=== PATIENT | male | born 2000 | race Caucasian/White ===

== ENCOUNTER 2024-08-14 21:52 | Emergency (ER) | payer OTHER, SELFPAY ==
[2024-08-14 21:58] VITALS: BP 135/74; PULSE 89; RESP 18; TEMP 36.7; O2SAT 99; BMI 24.4
--- NOTE | 2024-08-14 22:01 | ED.GENADULT ---
HPI - General Adult General Chief complaint: Urogenital Problems, Male Stated complaint: Genital injury Time Seen by Provider: 08/14/24 21:56 History of Present Illness HPI narrative: CC: Right Testicle Pain pt. with left testicle pain that started 2 days ago. now pain has moved to right testicle. denies n/v, fevers, urinary symptoms. 23-year-old young man presenting to the emergency department with concern of testicular pain. Seem to have started 2 days ago at the left side and now to the right. No dysuria frequency or urgency. No hematuria. Prior had been rough-housing with some friends and fell but nothing major. Does not recall any trauma in this area. Currently not sexually active. Got to talking with friends I believe and is concerned about potential torsion maybe even cancer. No issues prior. Related Data Home Medications ?Medication ?Instructions ?Recorded ?Confirmed No Known Home Medications 08/14/24 08/14/24 Allergies Allergy/AdvReac Type Severity Reaction Status Date / Time No Known Drug Allergies Allergy Verified 08/14/24 22:00 Review of Systems Status of ROS: Reports: 6 or more systems reviewed and unremarkable except as noted in History and below [facility] Medical History No significant past medical history Surgical History (Updated 08/14/24 @ 22:36 by Chente Boucher RN) No significant past surgical history Social History Smoking Status: Never smoker Second hand tobacco smoke exposure: No How often do you have a drink containing alcohol: never AUDIT-C Alcohol total score: 0 Non-prescribed substance use: marijuana (any form) Exam Narrative: Exam Narrative: Nervous, anxious. Abdomen is soft and nontender. Exquisitely tender right testicle little less so on the left. Mildly tender into the epididymal structures bilaterally as well. No swellings or masses appreciated no erythema. No lesions. No wall defect or hernia parent. Heart in regular rate. Const: Vital Signs, click to edit/add: Vital Signs - 24 hr 08/14/24 21:58 08/14/24 22:19 Temperature 98.1 F 98.1 F Pulse Rate [Right Pulse Oximeter] 89 Respiratory Rate 18 Blood Pressure [Ri ght Upper Arm] 135/74 Pulse Oximetry 99 Oxygen Delivery Me thod Room Air Documenting provider has reviewed patient's vital signs: yes Course Vital Signs Vital signs: Initial Vital Signs Temperature 98.1 F 08/14/24 21:58 Temperature Source Temporal Artery Scan 08/14/24 21:58 Pulse Rate 89 08/14/24 21:58 Respiratory Rate 18 08/14/24 21:58 Blood Pressure 135/74 08/14/24 21:58 Blood Pressure Mean 94 08/14/24 21:58 Blood Pressure Position Sitting 08/14/24 21:58 Pulse Oximetry 99 08/14/24 21:58 Oxygen Delivery Method Room Air 08/14/24 21:58 Vital Signs Temperature 98.1 F 08/14/24 21:58 Pulse Rate 89 08/14/24 21:58 Respiratory Rate 18 08/14/24 21:58 Blood Pressure 135/74 08/14/24 21:58 Pulse Oximetry 99 08/14/24 21:58 Oxygen Delivery Method Room Air 08/14/24 21:58 Temperature 98.1 F 08/14/24 22:19 Pulse Rate 89 08/14/24 21:58 Respiratory Rate 18 08/14/24 21:58 Blood Pressure 135/74 08/14/24 21:58 Pulse Oximetry 99 08/14/24 21:58 Oxygen Delivery Method Room Air 08/14/24 21:58 Medications Administered Medications: Discontinued Medications Generic Name Dose Route Start Last Admin Trade Name Seamusq PRN Reason Stop Dose Admin Ibuprofen 800 mg 08/14/24 22:16 08/14/24 22:19 Ibuprofen 400 Mg Tablet PO 08/14/24 22:17 800 mg ONCE ONE Administration Medical Decision Making [facility] Narrative Medical decision making narrative: Appears to have orchitis at a minimum. Maybe some mild epididymitis. Curiously timed after a fall but I do not see any evidence of torsion here. No masses or swellings to suggest secondary spermatocele or hydrocele. No lumps to suggest other more indolent process. No symptoms to suggest urethritis and appears to be low risk for STI. Symptoms appear isolated to the testicles in particular and would not appear to involve prostate. No abdominal symptoms otherwise. Offered ibuprofen. Urinalysis is unremarkable. Discussed diagnosis. Was more relaxed and I think more comfortable. See patient discharge plan for further discussion You appear to have inflammation of your testicles. Can take up to 800 mg of ibuprofen or up to 1000 mg of acetaminophen per dose. Alternative see ibuprofen might be up to 500 mg of naproxen twice daily. I would take either ibuprofen or naproxen regularly scheduled over the next few days. Consider wearing more snug underwear/briefs if you have them. Prescribing Bactrim from [facility] as antibiotic. Be seen for persistent and marked increase in pain or uncontrolled pain, fever, clear swelling or redness. Lab Data Lab results reviewed: Yes I reviewed the patient's lab results Labs: Lab Results 08/14/24 Range/Units 22:05 Urine Color Yellow (Yellow) Urine Appearance Clear (Clear) Urine pH 7.0 (5.0-8.5) Ur Specific [place] 1.010 (1.000-1.030) Urine Protein Negative (Negative) Urine Glucose (UA) Negative (Negative) Urine Ketones Negative (Negative) Urine Blood Negative (Negative) Urine Nitrite Negative (Negative) Urine Bilirubin Negative (Negative) Urine Urobilinogen 0.2 (0.2-1.0) Ur Leukocyte Esterase Negative (Negative) Urine RBC 0-2 (0-2) Urine WBC 0-2 (0-5) Ur Squamous Epith Cells None (None-Few) Urine Bacteria None (None) Discharge Plan Discharge Clinical Impression: Acute orchitis Patient Disposition: Home, Self-Care Condition: Stable Additional Instructions: You appear to have inflammation of your testicles. Can take up to 800 mg of ibuprofen or up to 1000 mg of acetaminophen per dose. Alternative see ibuprofen might be up to 500 mg of naproxen twice daily. I would take either ibuprofen or naproxen regularly scheduled over the next few days. Consider wearing more snug underwear/briefs if you have them. Prescribing Bactrim from [facility] as antibiotic. Be seen for persistent and marked increase in pain or uncontrolled pain, fever, clear swelling or redness. Prescriptions: No Action No Known Home Medications Follow Up/Referrals: Provider,Not a Local [Primary Care Provider] - Stand Alone Forms: [employer] Info Instructions
[2024-08-14 22:19] VITALS: TEMP 36.7
[2024-08-14] MEDS: IBUPROFEN 400 MG TABLET 800 MG PO (22:19)
[2024-08-14 22:22] LABS: Appearance Urine Clear (Clear); Bilirubin Urine Negative (Negative); Blood Urine Negative (Negative); Color Urine Yellow (Yellow); Glucose Urine Negative (Negative); Ketones Urine Negative (Negative); Leukocyte Esterase Urine Negative (Negative); Nitrite Urine Negative (Negative); Protein Urine Negative (Negative); Urobilinogen Urine 0.2 (0.2-1.0)
[2024-08-14 22:52] LABS: RBC Urine 0-2 (0-2); WBC Urine 0-2 (0-5)
== END 2024-08-14 23:03 | disposition home or self-care (01) ==
PROVIDERS: Emergency Provider Family Medicine
DX: N50.811 Right testicular pain (principal); N50.812 Left testicular pain
CPT/HCPCS: 81001; 99283; A9270